=== PATIENT | female | born 1980 | race African-American/Black ===

== ENCOUNTER 2016-04-14 01:45 | Inpatient (IN) | payer OTHER ==
[2016-04-14] MEDS ORDERED: BUTORPHANOL TARTRATE 1 MG/ML VIAL IVPUSH ONE (09:02)
[2016-04-14] MEDS ORDERED: PROMETHAZINE HCL 25 MG/1 ML VIAL IVPUSH PRN (09:05)
[2016-04-14] MEDS ORDERED: LACTATED RINGERS SOLUTION 1,000 ML IV SCH (09:15)
--- NOTE | 2016-04-14 09:19 | HP ---
Past Medical History - Primary Care Physician PCP:: Kareem Maxwell - Admission Chief Complaint: 36 weeks .labor. ama, grand multiparous History of Present Illness: 36 yo f 8 , edc by sono 05/08/16 36.4 weeks. c/o contraction, bloody show, cx 3 cm 75 vx -1 mi, fhr cat 1, irregular contraction History Source: Patient Limitations to Obtaining History: No Limitations - Past Medical History ...: 20 ...Para: 8 ...Term: 8 ...: 0 ...Spon : 1 ...Induced : 10 ...LMP: 08/31/15 ... Weeks Gestation by Dates: 32.3 ...EDC by Dates: 06/06/16 ...EDC by Sono: 05/08/16 Additional OB History: 95/99/01/02 /05//12/30 - Past Surgical History Hx Myomectomy: No Hx Transabdominal Cerclage: No Additional Surgical History: hx of cone biopsy - Smoking History Smoking history: Never smoked - Alcohol/Substance Use Hx Alcohol Use: No - Social History History of Recent Travel: No Home Medications - Allergies Allergies/Adverse Reactions: Allergies Allergy/AdvReac Type Severity Reaction Status Date / Time No Known Allergies Allergy Verified 04/14/16 07:30 - Home Medications Home Medications: Ambulatory Orders Vit Calc,Iron,Folic [ Vitamins] 1 each PO DAILY 04/14/16 Review of Systems - Review of Systems Constitutional: reports: No Symptoms Eyes: reports: No Symptoms HENT: reports: No Symptoms Neck: reports: No Symptoms Cardiovascular: reports: No Symptoms Respiratory: reports: No Symptoms Gastrointestinal: reports: No Symptoms Genitourinary: reports: No Symptoms Musculoskeletal: reports: No Symptoms Integumentary: reports: No Symptoms Neurological: reports: No Symptoms Endocrine: reports: No Symptoms Hematology/Lymphatic: reports: No Symptoms Psychiatric: reports: No Symptoms Physical Exam - Maternity Vital Signs: Vital Signs Temperature 98.1 F 04/14/16 08:17 Pulse Rate 83 04/14/16 08:17 Respiratory Rate 20 04/14/16 08:17 Blood Pressure 112/65 04/14/16 08:17 O2 Sat by Pulse Oximetry (%) Constitutional: Yes: Well Nourished, No Distress, Calm Eyes: Yes: WNL, Conjunctiva Clear, EOM Intact HENT: Yes: WNL, Atraumatic, Normocephalic Neck: Yes: WNL, Supple, Trachea Midline Cardiovascular: Yes: WNL, Regular Rate and Rhythm Breast(s): Yes: WNL - Abdominal Exam/OB Fundal Height: 37 Number of Fetuses: Single Presentation: Vertex Contractions: Yes Regularity: Irregular Monitor Mode: External Heart Rate Location: [facility] Category: I Accelerations: Uniform Decelerations: None - Vaginal Exam/OB Vaginal Bleediing: Bloody Show Speculum Exam: No Dilatation (cm): 3 cm Effacement (%): 75 Amniotic Membrane Status: Intact Presentation: Vertex/Position Station: -1 - Physical Exam Musculoskeletal: Yes: WNL Edema: LLE: Trace, RLE: Trace Deep Tendon Reflex Grade: Normal +2 Hemorrhage Risk Assessment - Risk Factors Medium Risk Factors: Yes: Multiple gestation Risk Score: 1 Risk Level: Medium Risk Problem List - Problems (1) with 36 completed weeks gestation Code(s): Z3A.36 - 36 WEEKS GESTATION OF (2) First stage of labor established Code(s): [id number] - (3) Grand multiparity in labor and delivery Code(s): O09.40 - SUPERVISION OF W GRAND MULTIPARITY, UNSP TRIMESTER Qualifiers: Trimester: third trimester Qualified Code(s): O09.43 - Supervision of with grand multiparity, third trimester (4) Advanced maternal age (AMA) in Code(s): [id number] - Assessment/Plan admit, heart monitoring
[2016-04-14 09:43] VITALS: BMI 26.3
[2016-04-14 09:45] LABS: BASOPHIL 0.5 % (0-2.0); EOSINOPHIL 0.2 % (0-4.5); MCH 29.7 pg (25.7-33.7); MCHC 33.7 g/dl (32.0-36.0); MEAN CELL VOLUME 88.1 fl (80-96); MEAN PLT VOLUME 9.3 fl (7.5-11.1); NEUTROPHILS 73.2 % (42.8-82.8); PLATELET COUNT 126 K/MM3 (134-434); RDW 13.8 % (11.6-15.6); WHITE BLOOD COUNT 9.4 K/mm3 (4.0-10.0)
[2016-04-14 10:00] LABS: INR 1.05 (0.82-1.09); PROTHROMBIN TIME (PATIENT) 11.6 SEC (9.98-11.88)
[2016-04-14 10:03] LABS: ACTIVATED PTT 29.4 SECONDS (26.9-34.4)
[2016-04-14] MEDS ORDERED: AMPICILLIN - 2 GM in SODIUM CHLORIDE 100 ML IVPB ONE (10:07)
[2016-04-14 10:12] LABS: CALCIUM 8.2 mg/dL (8.5-10.1); CREATININE 0.5 mg/dL (0.55-1.02)
[2016-04-14] MEDS: AMPICILLIN - 1 GM in SODIUM CHLORIDE 100 ML IVPB SCH ×3 (14:01→22:30)
--- NOTE | 2016-04-14 16:59 | PN ---
Progress Note (short form) - Note Progress Note: cx 4 cm 75 vx -1 mi, fhr cat 1, irregular contraction Problem List - Problems (1) with 36 completed weeks gestation Code(s): Z3A.36 - 36 WEEKS GESTATION OF (2) First stage of labor established Code(s): [id number] - (3) Grand multiparity in labor and delivery Code(s): O09.40 - SUPERVISION OF W GRAND MULTIPARITY, UNSP TRIMESTER Qualifiers: Trimester: third trimester Qualified Code(s): O09.43 - Supervision of with grand multiparity, third trimester (4) Advanced maternal age (AMA) in Code(s): [id number] -
[2016-04-15] MEDS: AMPICILLIN - 1 GM in SODIUM CHLORIDE 100 ML IVPB SCH ×3 (02:15→11:01)
[2016-04-15 10:34] VITALS: BP 94/44; PULSE 95; TEMP 98
--- NOTE | 2016-04-15 11:23 | PN ---
Progress Note (short form) - Note Progress Note: no c/o , does not feel any more contraction, comfortable ,wants to go home, instruction given, , fhr cat 1 tracing , wiith irregular contraction ,not felt by patient Problem List - Problems (1) with 36 completed weeks gestation Code(s): Z3A.36 - 36 WEEKS GESTATION OF (2) First stage of labor established Code(s): [id number] - (3) Grand multiparity in labor and delivery Code(s): O09.40 - SUPERVISION OF W GRAND MULTIPARITY, UNSP TRIMESTER Qualifiers: Trimester: third trimester Qualified Code(s): O09.43 - Supervision of with grand multiparity, third trimester (4) Advanced maternal age (AMA) in Code(s): [id number] -
--- NOTE | 2016-04-15 11:30 | DS ---
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 Vital Signs: Vital Signs Temperature 98.0 F 04/15/16 10:00 Pulse Rate 95 H 04/15/16 10:00 Respiratory Rate 18 04/15/16 10:00 Blood Pressure 94/44 04/15/16 10:00 O2 Sat by Pulse Oximetry (%) Constitutional: Yes: Well Nourished, No Distress, Calm Eyes: Yes: WNL, Conjunctiva Clear, EOM Intact HENT: Yes: WNL, Atraumatic, Normocephalic Neck: Yes: WNL, Supple, Trachea Midline Cardiovascular: Yes: WNL, Regular Rate and Rhythm Respiratory: Yes: WNL, Regular, CTA Bilaterally Gastrointestinal: Yes: WNL ...Rectal Exam: Yes: WNL Renal/: Yes: WNL Vaginal Exam: Yes: Normal Cervix: Yes: Other (3 to 4 cm 70 vx -1.) Uterus: Yes: Normal (36 weeks,fhr cat1) Breast(s): Yes: WNL Musculoskeletal: Yes: WNL Extremities: Yes: WNL Edema: Yes Edema: LLE: Trace, RLE: Trace Integumentary: Yes: WNL Neurological: Yes: WNL, Alert, Oriented ...Motor Strength: WNL Psychiatric: Yes: WNL, Alert, Oriented Labs: CBC, BMP 04/14/16 09:30 04/14/16 09:30 Delivery - Delivery Vaginal Delivery: No Problems ( 36 weeks, contracion, not delivered) Delivery, Single - [place] Feeding Plan Initial Plan: Exclusive throughout hospitalization Remarks - Remarks Remarks: 36 weeks, contraction, admitted for iv hydration and observation since grand multip Discharge Summary Reason For Visit: EARLY LABOR Current Active Problems Advanced maternal age (AMA) in (Acute) First stage of labor established (Acute) Grand multiparity in labor and delivery (Acute) with 36 completed weeks gestation (Acute) Condition: Good - Instructions Diet, Activity, Other Instructions: . low carb diet, follow up h care on . follow up with MFM in am,if pain, bleeding, rom to L$D immediately Referrals: Kareem Maxwell MD [Staff Physician] - (DISCHARGE HOME; DRINK PLENTY OF FLUIDS; WHEN CONTRACTIONS ARE CLOSER AND STRONGER, IF YOUR WATER BREAKS, IF YOU EXPERIENCE VAGINAL BLEEDING LIKE A PERIOD OR DECREASED MOVEMENT RETURN TO HOSPITAL; IF NO CHANGE KEEP US APPOINTMENT FOR TOMORROW AND FOLLOW UP IN CLINIC Saturday04/19/16; ANY QUESTIONS/PROBLEMS CALL CLINIC OR LABOR AREA [phone]) Disposition: HOME - Home Medications Comprehensive Discharge Medication List: Ambulatory Orders Vit Calc,Iron,Folic [ Vitamins] 1 each PO DAILY 04/14/16
== END 2016-04-15 11:25 | disposition home or self-care (01) | DRG 563 ==
LOC: JDEL 01:45 → JLDR 09:00
PROVIDERS: ADMIT Obstetrics & Gynecology; ATTEND Obstetrics & Gynecology
DX: O60.03 Preterm labor without delivery, third trimester (principal); O75.89 Other specified complications of labor and delivery; O09.43 Supervision of pregnancy with grand multiparity, third trimester; O09.523 Supervision of elderly multigravida, third trimester; Z3A.36 36 weeks gestation of pregnancy
CPT/HCPCS: 36415; 59025; 80048; 85025; 85610; 85730; 86593; 86850; 86900; 86901

== ENCOUNTER 2016-04-26 10:45 | Inpatient (IN) | payer OTHER ==
[2016-04-26] MEDS ORDERED: DEXTROSE 5%-LACTATED RINGERS 1,000 ML IV SCH (11:00)
[2016-04-26 11:56] VITALS: BMI 25.0
--- NOTE | 2016-04-26 12:40 | HP ---
Past Medical History - Primary Care Physician PCP:: Mindi Owen - Admission Chief Complaint: 36 yrs ,0,11,8 38.2 weeks onset of labor since 10.00am History of Present Illness: pt was hspitalized once 04/14 & discharged as false pains. she was evaluated in L&D on 04/24/16 for labor evaluation & sent home , she was 4 cm, 70 % vx-3, uc irregular 7-10-12 min apart PNC at [facility] . wt gain 30 lbs work up : O Pos, rpr nr, Hbsag neg, Rubella pos, Quantiferon neg, Hiv neg, GBS neg, 1 hr GTT 150. . 3 hr GTT on 04/16/16 85,, 213,176,81. ( 2 lab results , abn in favor of GDM . . 10/25/2015 pap NILM sono grams not in chart LD 05/26/2011. 8 .Largest bay she delivered was 8'13" . first baby (pregn) All1 st trimesrer Abortions . Last 01/2015 . , History Source: Patient, Medical Record Limitations to Obtaining History: No Limitations - Past Medical History POST ACUTE CARE REGISTERED NURSE: No: Seizure Cardiovascular: No: HTN, Murmur Pulmonary: No: Asthma Renal/: No: Cancer ...: 20 ...Para: 8 (8 ) ...Term: 8 ...Spon : 1 ...Induced : 10 ...EDC by Sono: 05/08/16 (38.2 weeks ) Infectious Disease: Yes: STD's (h/o gonorrhea when 16 yrs old), Other (past h/o abn pap) Psych: No: Addictions, Anxiety - Past Surgical History Hx Myomectomy: No Hx Transabdominal Cerclage: No - Smoking History Smoking history: Never smoked Have you smoked in the past 12 months: No - Alcohol/Substance Use Hx Alcohol Use: No History of Substance Use: reports: None - Social History History of Recent Travel: No Home Medications - Allergies Allergies/Adverse Reactions: Allergies Allergy/AdvReac Type Severity Reaction Status Date / Time No Known Allergies Allergy Verified 04/24/16 22:52 - Home Medications Home Medications: Ambulatory Orders Vit/Iron Fumarate/FA [ Tablet] 1 tablet PO DAILY MDD 1 Physical Exam - Maternity Vital Signs: Vital Signs Temperature 98.3 F 04/26/16 11:42 Pulse Rate 82 04/26/16 11:42 Respiratory Rate 18 04/26/16 11:42 Blood Pressure 127/80 04/26/16 11:42 O2 Sat by Pulse Oximetry (%) Constitutional: Yes: Well Nourished, Mild Distress Eyes: Yes: WNL HENT: Yes: WNL, Normocephalic Neck: Yes: WNL Cardiovascular: Yes: WNL, Regular Rate and Rhythm Lungs: Clear to auscultation Breast(s): Yes: WNL - Abdominal Exam/OB Fundal Height: 38 Number of Fetuses: Single Presentation: Vertex Contractions: Yes Regularity: Regular Intensity: Moderate (2-4 min) Monitor Mode: External Heart Rate (range): 150 Heart Rate Location: [facility] Category: I Accelerations: Uniform Decelerations: None - Vaginal Exam/OB Vaginal Bleediing: No Speculum Exam: No Dilatation (cm): 6 Effacement (%): 90 Amniotic Membrane Status: Intact Presentation: Vertex/Position (exam at 11.30 am) Station: -1 - Physical Exam Musculoskeletal: Yes: WNL Extremities: Yes: WNL. No: Calf Tenderness Edema: LLE: 1+, RLE: 1+ Integumentary: Yes: WNL, Tattoos Deep Tendon Reflex Grade: Normal +2 ...Motor Strength: WNL Psychiatric: Yes: WNL, Alert, Oriented - Labs Lab Results: Laboratory Tests 04/26/16 04/26/16 04/26/16 12:25 12:25 12:25 WBC 10.7 H Hgb 13.9 Hct 41.4 Plt Count 139 Neutrophils % 77.0 Lymphocytes % 14.8 D Monocytes % 7.5 Eosinophils % 0.2 INR 1.06 PTT (Actin FS) 28.9 Sodium 141 Potassium 3.5 Chloride 105 Carbon Dioxide 25 BUN 4 L Creatinine 0.4 L Random Glucose 84 D RPR Titer 04/26/16 12:25 WBC Hgb Hct Plt Count Neutrophils % Lymphocytes % Monocytes % Eosinophils % INR PTT (Actin FS) Sodium Potassium Chloride Carbon Dioxide BUN Creatinine Random Glucose RPR Titer Nonreactive Problem List - Problems (1) with 38 completed weeks gestation Code(s): Z3A.38 - 38 WEEKS GESTATION OF (2) Labor established Code(s): [id number] - (3) Grand multipara in labor Code(s): O09.40 - SUPERVISION OF W GRAND MULTIPARITY, UNSP TRIMESTER (4) Grand multipara in labor in third trimester Code(s): O09.43 - SUPRVSN OF W GRAND MULTIPARITY, THIRD TRIMESTER O47.03 - FALSE LABOR BEFORE 37 COMPLETED WEEKS OF GEST, THIRD TRI Assessment/Plan 36 yrs G20, P,8,0, 11, 8 38.2 weeks in active labor gbs neg Plan vaginal delivery
[2016-04-26 12:52] LABS: BASOPHIL 0.5 % (0-2.0); EOSINOPHIL 0.2 % (0-4.5); MCH 29.6 pg (25.7-33.7); MCHC 33.5 g/dl (32.0-36.0); MEAN CELL VOLUME 88.4 fl (80-96); MEAN PLT VOLUME 10.2 fl (7.5-11.1); PLATELET COUNT 139 K/MM3 (134-434); RDW 13.4 % (11.6-15.6); WHITE BLOOD COUNT 10.7 K/mm3 (4.0-10.0)
--- NOTE | 2016-04-26 12:52 | PN ---
Progress Note, Labor Vaginal Exam #2 Labor Exam Date: 04/26/16 Labor Exam Time: 12:15 Heart Rate (range): 150 Dilatation: 7 Effacement (%): 100 Amniotic Membrane Status: Ruptured (SROM 12.15 clear) Presentation: Vertex/Position Station: 0 (0/+1) Remarks: FHR cat-1 uc 4 min Vaginal Exam #3 Labor Exam Date: 04/26/16 Labor Exam Time: 14:00 Heart Rate (range): 150 Dilatation: 10 Effacement (%): 100 Amniotic Membrane Status: Ruptured Presentation: Vertex/Position Station: +2 Remarks: pt pushing Selected Entries 04/26/16 13:00 Temperature 98.0 F Pulse Rate 89 Blood Pressure 115/61
[2016-04-26 13:10] LABS: INR 1.06 (0.82-1.09); PROTHROMBIN TIME (PATIENT) 11.7 SEC (9.98-11.88)
[2016-04-26 13:13] LABS: ACTIVATED PTT 28.9 SECONDS (26.9-34.4)
[2016-04-26 13:27] LABS: CALCIUM 8.3 mg/dL (8.5-10.1); CREATININE 0.4 mg/dL (0.55-1.02)
[2016-04-26] MEDS ORDERED: OXYTOCIN 20 UNITS in 0.9% NS 1000 ML INFUS.BAG IV ONE (14:15)
[2016-04-26] MEDS ORDERED: BENZOCAINE 28 GM HEMORRHOIDAL OINTMENT TP PRN (14:28)
[2016-04-26] MEDS ORDERED: BISACODYL 10 MG SUPP.RECT RC PRN (14:28)
[2016-04-26] MEDS ORDERED: WITCH HAZEL 50% (TUCKS) 40 PAD/JAR PAD TP PRN (14:28)
[2016-04-26] MEDS ORDERED: BENZOCAINE 20% 57 GM BOTTLE TP PRN (14:28)
[2016-04-26] MEDS ORDERED: METHYLERGONOVINE MALEATE 0.2 MG/1 ML AMP IM PRN (14:28)
[2016-04-26] MEDS ORDERED: D5W-LR W/ 20 UNITS OXYTOCIN 1,000 ML IV SCH (14:30)
--- NOTE | 2016-04-26 14:39 | PN ---
Delivery - Delivery Vaginal Delivery: Spontaneous Type of Anesthesia: None Episiotomy/Laceration: None EBL (cc): 300 (Inj Methergine 0.2mg im stat given prophylactically ) Delivery, Single - Stages of Labor Date 1st Stage Initiatied: 04/26/16 Time 1st Stage Initiated: 10:00 Date 2nd Stage Initiated: 04/26/16 Time 2nd Stage Initiated: 14:00 Date of Delivery: 04/26/16 Time of Delivery: 14:12 Time Placenta Delivered: 14:14 Placenta: Yes: Spontaneous, Uterine Exploration - Condition of Concrete Curer/Application Systems Engineer Present: No Gender: Female Weight: 6 lb 9 oz Position: Left, OA Total Hours ROM (Hrs/Mins): 2h4m - 1 Minute Total Score: 9 5 Minutes Total Score: 10 - [place] Feeding Plan Initial Plan: Elected not to breastfeed exclusively throughout hospitalization Remarks - Remarks Remarks: 36 yrs G20, P8,011, 8, 38.2 weeks, admitted in labor GBS neg PNC at [facility] . Intrapartum course uneventful
[2016-04-26] MEDS: oxyCODONE HCL 5 MG TABLET PO PRN ×2 (15:10→20:33)
[2016-04-26] MEDS: FERROUS SO4 325 MG TABLET (FP) PO SCH (17:18)
[2016-04-26] MEDS: IBUPROFEN 600 MG TABLET (FP) PO PRN (19:38)
[2016-04-27] MEDS: oxyCODONE HCL 5 MG TABLET PO PRN ×4 (04:14→23:23)
[2016-04-27] MEDS: IBUPROFEN 600 MG TABLET (FP) PO PRN ×2 (04:14→14:31)
--- NOTE | 2016-04-27 07:59 | PN ---
Progress Note (short form) - Note Progress Note: ppd 1 doing well ,no c/o uterus firm, non tender, no cva lochia mild no excess vaginal bleeding no calf tenderness plan ambulate, cbc
[2016-04-27 08:38] LABS: BASOPHIL 0.5 % (0-2.0); EOSINOPHIL 0.8 % (0-4.5); MCH 30.3 pg (25.7-33.7); MCHC 34.5 g/dl (32.0-36.0); MEAN CELL VOLUME 87.7 fl (80-96); NEUTROPHILS 70.8 % (42.8-82.8); PLATELET COUNT 128 K/MM3 (134-434); RDW 13.9 % (11.6-15.6); WHITE BLOOD COUNT 10.2 K/mm3 (4.0-10.0)
[2016-04-27] MEDS: PRENATAL VITAMINS W/ FOLIC ACID TABLET (FP) PO SCH (10:08)
[2016-04-27] MEDS: ACETAMINOPHEN 325 MG TABLET (FP) PO PRN ×2 (10:08→23:22)
[2016-04-27] MEDS: FERROUS SO4 325 MG TABLET (FP) PO SCH ×2 (10:08→17:58)
[2016-04-27 21:48] VITALS: TEMP 97.8
[2016-04-27] MEDS ORDERED: SENNOSIDES/DOCUSATE COMBO (SENNA PLUS) TABLET (UD) PO PRN (22:00)
[2016-04-28] MEDS: ACETAMINOPHEN 325 MG TABLET (FP) PO PRN (05:46)
[2016-04-28] MEDS: oxyCODONE HCL 5 MG TABLET PO PRN (05:47)
[2016-04-28] MEDS: FERROUS SO4 325 MG TABLET (FP) PO SCH (07:58)
--- NOTE | 2016-04-28 08:24 | PN ---
Progress Note (short form) - Note Progress Note: ppd 2 no c/o voids ok, no excess vaginal bleeding CBC, BMP 04/27/16 07:45 04/26/16 12:25 Last Vital Signs Temp Pulse Resp BP Pulse Ox 97.8 F 86 20 90/47 04/27/16 21:42 04/27/16 21:42 04/27/16 21:42 04/27/16 21:42 abdomen soft, no distension , no cva uterus firm lochia mild plan d/c home rtc 4 weeks
[2016-04-28 08:29] VITALS: BP 103/67; PULSE 72
[2016-04-28] MEDS: PRENATAL VITAMINS W/ FOLIC ACID TABLET (FP) PO SCH (09:20)
--- NOTE | 2016-04-28 17:30 | DS ---
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 Vital Signs: Vital Signs Temperature 97.8 F 04/28/16 07:50 Pulse Rate 72 04/28/16 07:50 Respiratory Rate 20 04/28/16 07:50 Blood Pressure 103/67 04/28/16 07:50 O2 Sat by Pulse Oximetry (%) Constitutional: Yes: Well Nourished Eyes: Yes: WNL HENT: Yes: WNL Neck: Yes: WNL Cardiovascular: Yes: WNL Respiratory: Yes: WNL, CTA Bilaterally Gastrointestinal: Yes: WNL ...Rectal Exam: Yes: WNL Renal/: Yes: WNL Pelvis: Yes: WNL External Genitalia: Yes: Normal ....Post : Yes: Uterus firm, Uterus non-tender, Moderate lochia rubra ( perineum intact) Breast(s): Yes: WNL (BF) Musculoskeletal: Yes: WNL Extremities: Yes: WNL. No: Calf Tenderness Edema: LLE: 1+, RLE: 1+ Integumentary: Yes: WNL Wound/Incision: Yes: Clean/Dry Neurological: Yes: WNL ...Motor Strength: WNL Psychiatric: Yes: WNL, Alert, Oriented Labs: CBC, BMP 04/27/16 07:45 04/26/16 12:25 Delivery - Delivery Vaginal Delivery: Spontaneous Type of Anesthesia: None Episiotomy/Laceration: None EBL (cc): 300 (Inj Methergine 0.2mg im stat given prophylactically ) Delivery, Single - Stages of Labor Date 1st Stage Initiatied: 04/26/16 Time 1st Stage Initiated: 10:00 Date 2nd Stage Initiated: 04/26/16 Time 2nd Stage Initiated: 14:00 Date of Delivery: 04/26/16 Time of Delivery: 14:12 Time Placenta Delivered: 14:14 Placenta: Yes: Spontaneous, Uterine Exploration - Condition of Ingot Header/Metal Casting Trades Worker Present: No Gender: Female Weight: 6 lb 9 oz Position: Left, OA Total Hours ROM (Hrs/Mins): 2h4m - 1 Minute Total Score: 9 5 Minutes Total Score: 10 - Feeding Plan Initial Plan: Elected not to breastfeed exclusively throughout hospitalization Remarks - Remarks Remarks: 36 yrs G20, P8,011, 8, 38.2 weeks, admitted in labor GBS neg PNC at [facility] . Intrapartum course uneventful pp course uneventful. contraception was dicussed discharged today Discharge Summary Reason For Visit: LABOR Condition: Stable - Instructions Diet, Activity, Other Instructions: Post Instructions DIET: Continue good diet high in protein, calcium, and iron rich foods. Drink at least eight (8) glasses of water daily in addition to other fluids. ct Regular diet MEDICATIONS: Continue vitamins and iron as previously directed. Motrin and Tylenol may be taken for minor discomfort. ACTIVITY: Mild to moderate exercise may be started in two (2) weeks. Take frequent rest periods. Resume normal activity after six (6) week check up. WOUND CARE OF OPERATIVE SITE: Continue use of perineal bottle until vaginal discharge stops. Keep area clean. Shower daily. Keep abdominal wound dry. Report any drainage or redness to physician. Tub baths, tampons and douches are not permitted for [address] Breast feeding & or Bottle feeding BREAST CARE: (For those that are not breast feeding): If engorgement occurs: Wear tight fitting bra. Take Tylenol or Motrin for pain. Apply cold packs (ice in bags to each breast ) FAMILY PLANNING: There are many control alternatives to pursue and they should be discussed at your first office visit. You may resume sexual activity after your six (6) week check up. (Remember, breast feeding is not a contraceptive) NEXT PHYSICIAN APPOINTMENT: Be certain to call for a six (6) week appointment, unless otherwise directed. . Repeat 75 gm GTT in 3 months with your PCP Call Clinic or got to Emergency Dept if you have any of the following: Heavy vaginal bleeding Painful urination Leg pain Unusual odor noted to vaginal bleeding High fever Red streaking noted on breast Referrals: Mindi Owen MD [Staff Physician] - Disposition: HOME - Home Medications Comprehensive Discharge Medication List: Ambulatory Orders Acetaminophen [Tylenol .Regular Strength -] 650 mg PO Q3H PRN #0 tablet Ferrous Sulfate [Feosol] 325 mg PO BIDWM #60 04/26/16 Ibuprofen [Motrin -] 200 mg PO Q4H PRN #0 tablet 04/26/16 Vit/Iron Fumarate/FA [ Tablet] 1 tablet PO DAILY MDD 1 Vitamins (Sjr) - 1 tab PO DAILY tablet 04/26/16 Ibuprofen [Motrin -] 600 mg PO QID #28 tablet 04/28/16
== END 2016-04-28 12:10 | disposition home or self-care (01) | DRG 560 ==
LOC: JLDR 10:45 → J3W 15:46
PROVIDERS: ADMIT Obstetrics & Gynecology; ATTEND Obstetrics & Gynecology
PROC: 10E0XZZ Delivery of Products of Conception, External Approach (ICD-10-PCS; principal; 2016-04-26)
DX: O75.89 Other specified complications of labor and delivery (principal); O09.523 Supervision of elderly multigravida, third trimester; Z3A.38 38 weeks gestation of pregnancy; Z37.0 Single live birth
CPT/HCPCS: 36415; 59409; 80048; 85025; 85610; 85730; 86593; 86850; 86900; 86901